=== PATIENT | female | born 1975 | race Caucasian/White ===

== ENCOUNTER 2017-11-24 04:49 | Emergency (ER) | payer OTHER ==
[2017-11-24] MEDS ORDERED: NS 1,000 ML IV ONE ×2 (05:17→05:33)
[2017-11-24] MEDS ORDERED: ONDANSETRON 4 MG/2 ML VIAL IVP ONE (05:17)
[2017-11-24] MEDS ORDERED: FAMOTIDINE 20 MG/2 ML SDV IVP ONE (05:18)
--- NOTE | 2017-11-24 05:33 | EDPHY ---
H & P Stated Complaint: ABD PAIN,DIARRHEA,NAUSEA X 5 DAYS Time Seen by Provider: 11/24/17 05:08 HPI/ROS: Chief Complaint: Abdominal pain and diarrhea HPI: 42-year-old woman's been having diarrhea for the last 5 days. Patient is visiting from [place]. She states that last that she has began having loose stools during the course today in these of persisted very getting worse. She has been also been having intermittent upper abdominal pain. She has been taking multiple other takp-eyf-cyplgrx medications without any relief. She did take some Pepto-Bismol last couple days. She has also used some marijuana patch which has helped with the nausea improved her appetite. Yesterday she was feeling better in ate some toast. The afternoon she ate a hamburger and had worsening mild cramping but woke up this morning with multiple episodes of loose stools. Occasionally her stool is tarry but this is only been since she has been taking the Pepto-Bismol. No other recent travel. No recent antibiotics. No history of similar symptoms in the past. She did have a low- grade fever several days ago which has since resolved. No blood in her stool. No vomiting but she has had some nausea. She is currently having her menstrual cycle. ROS: 10 systems were reviewed and were negative except those elements noted in the HPI. PMH: Denies Social History: No smoking, occasional alcohol, occasional marijuana Family History: non-contributory Physical Exam: Gen: Awake, Alert, No Distress HEENT: Nose: no rhinorrhea Eyes: PERRLA, EOMI Mouth: Dry mucosa Neck: Supple, no JVD Chest: nontender, lungs clear to auscultation Heart: S1, S2 normal, no murmur Abd: Soft, nontender, no guarding Back: no CVA tenderness, no midline tenderness Ext: no edema, non-tender Skin: no rash Neuro: CN II-XII intact, Sensation grossly intact, Strength 5/5 in bilateral upper and lower extremities - Personal History LMP (Females 10-55): 1-7 Days Ago Current Tetanus Diphtheria and Acellular Pertussis (TDAP): Yes - Medical/Surgical History Hx Asthma: No Hx Chronic Respiratory Disease: No Hx Diabetes: No Hx Cardiac Disease: No Hx Renal Disease: No Hx Cirrhosis: No Hx Alcoholism: No Hx HIV/AIDS: No Hx Splenectomy or Spleen Trauma: No Other PMH: PARATHYROIDECTOMY 2010 - Social History Smoking Status: Never smoked Constitutional: Initial Vital Signs Temperature (C) 36.9 C 11/24/17 04:51 Heart Rate 90 11/24/17 04:51 Respiratory Rate 16 11/24/17 04:51 Blood Pressure 98/66 L 11/24/17 04:51 O2 Sat (%) 97 11/24/17 04:51 O2 Delivery Mode Room Air Allergies/Adverse Reactions: No Known Allergies Allergy (Unverified 11/24/17 04:55) Home Medications: Medication Instructions Recorded NK [No Known Home Meds] 11/24/17 Medical Decision Making ED Course/Re-evaluation: 42-year-old presenting with 5 days of diarrhea which is worsening. Some abdominal cramping. Abdomen is soft and benign. Laboratory evaluations are unremarkable. She is improved after 2 L of fluid and some antiemetics. Will treat her with a single g of azithromycin to treat empiric pathogens, she will follow up with primary care physician when she returns home tomorrow. - Data Points Laboratory Results: Laboratory Results 11/24/17 05:31 11/24/17 05:31 11/24/17 11/24/17 11/24/17 05:31 05:31 05:31 WBC 4.87 10^3/uL 10^3/uL (3.80-9.50) RBC 4.20 10^6/uL 10^6/uL (4.18-5.33) Hgb 12.3 g/dL L g/dL (12.6-16.3) Hct 37.1 % L % (38.0-47.0) MCV 88.3 fL fL (81.5-99.8) MCH 29.3 pg pg (27.9-34.1) MCHC 33.2 g/dL g/dL (32.4-36.7) RDW 12.2 % % (11.5-15.2) Plt Count 136 10^3/uL L 10^3/uL (150-400) MPV 10.3 fL fL (8.7-11.7) Neut % (Auto) 80.5 % H % (39.3-74.2) Lymph % (Auto) 10.7 % L % (15.0-45.0) Aiken % (Auto) 7.0 % % (4.5-13.0) Eos % (Auto) 1.6 % % (0.6-7.6) Baso % (Auto) 0.2 % L % (0.3-1.7) Nucleat RBC Rel Count 0.0 % % (0.0-0.2) Absolute Neuts (auto) 3.92 10^3/uL 10^3/uL (1.70-6.50) Absolute Lymphs (auto) 0.52 10^3/uL L 10^3/uL (1.00-3.00) Absolute Monos (auto) 0.34 10^3/uL 10^3/uL (0.30-0.80) Absolute Eos (auto) 0.08 10^3/uL 10^3/uL (0.03-0.40) Absolute Basos (auto) 0.01 10^3/uL L 10^3/uL (0.02-0.10) Absolute Nucleated RBC 0.00 10^3/uL 10^3/uL (0-0.01) Immature Gran % 0.0 % % (0.0-1.1) Immature Gran # 0.00 10^3/uL 10^3/uL (0.00-0.10) RBC/WBC/PLT Morphology TNP Platelet Estimate TNP Sodium 142 mEq/L mEq/L (135-145) Potassium 3.5 mEq/L mEq/L (3.3-5.0) Chloride 108 mEq/L mEq/L (97-110) Carbon Dioxide 24 mEq/l mEq/l (22-31) Anion Gap 10 mEq/L mEq/L (8-16) BUN 13 mg/dL mg/dL (7-23) Creatinine 0.8 mg/dL mg/dL (0.6-1.0) Estimated GFR > 60 Glucose 96 mg/dL mg/dL (70-100) Calcium 8.9 mg/dL mg/dL (8.5-10.4) Total Bilirubin 0.4 mg/dL mg/dL (0.1-1.4) AST 23 IU/L IU/L (14-46) ALT 25 IU/L IU/L (9-52) Alkaline Phosphatase 52 IU/L IU/L (38-126) Total Protein 6.6 g/dL g/dL (6.3-8.2) Albumin 3.9 g/dL g/dL (3.5-5.0) Beta HCG, Qual NEGATIVE Medications Given: Discontinued Medications Famotidine (Pepcid) 20 mg IVP EDNOW ONE Stop: 11/24/17 05:19 Last Admin: 11/24/17 05:28 Dose: 20 mg Sodium Chloride (Ns) 1,000 mls @ 0 mls/hr IV ONCE ONE; Wide Open PRN Reason: Protocol Stop: 11/24/17 05:18 Last Admin: 11/24/17 05:28 Dose: 1,000 mls Sodium Chloride (Ns) 1,000 mls @ 0 mls/hr IV ONCE ONE; Wide Open PRN Reason: Protocol Stop: 11/24/17 05:34 Last Admin: 11/24/17 05:43 Dose: 1,000 mls Ondansetron HCl (Zofran) 4 mg IVP EDNOW ONE Stop: 11/24/17 05:18 Last Admin: 11/24/17 05:28 Dose: 4 mg Departure - Departure Disposition: Home, Routine, Self-Care Clinical Impression: Diarrhea Condition: Good Instructions: Acute Diarrhea (ED) Additional Instructions: Make sure to drink plenty of clear liquids. Follow up with primary care physician when you return home. Return for increasing abdominal pain, uncontrolled diarrhea, lightheadedness, fainting, or any other concerns. Referrals: NONE *PRIMARY CARE P,. [Primary Care Provider] - As per Instructions
[2017-11-24 05:48] LABS: PLATELET COUNT 136 10^3/uL (150-400)
[2017-11-24] MEDS ORDERED: AZITHROMYCIN 250 MG TAB PO ONE (06:27)
[2017-11-24 06:42] VITALS: BP 100/59
== END 2017-11-24 06:44 | disposition home or self-care (01) ==
DX: R19.7 Diarrhea, unspecified (principal); R10.9 Unspecified abdominal pain; E86.9 Volume depletion, unspecified
CPT/HCPCS: 96374; J2405